=== PATIENT | male | born 1975 | race Caucasian/White ===

== ENCOUNTER 2023-01-01 08:37 | Day surgery (SDC) | payer OTHER ==
[~2023-01-01] VITALS: Ht 177.8 cm; Wt 96.6 kg
[~2023-01-01 08:37] MED LIST: ALTACE10 MG PO
[2023-01-01] MEDS ORDERED: PERCOCET 5-3251 EACH PO (13:59)
[2023-01-01] MEDS ORDERED: NEURONTIN300 MG PO (13:59)
[2023-01-01] MEDS ORDERED: POLY119PG PO (14:00)
== END 2023-01-01 17:45 | disposition home or self-care (01) ==
LOC: CIR.AMB 08:37
PROVIDERS: ATTEND Surgery
DX: K43.9 Ventral hernia without obstruction or gangrene (principal); Z20.822 Contact with and (suspected) exposure to COVID-19
CPT/HCPCS: 49594; C1781